=== PATIENT | female | born 1980 | race Caucasian/White ===

== ENCOUNTER 2019-01-29 01:57 | Emergency (ER) | payer OTHER ==
[~2019-01-29] VITALS: Ht 157.5 cm; Wt 64.3 kg
[2019-01-29] MEDS ORDERED: IBUPROFEN 600 MG TABLET ONE (02:28)
[2019-01-29] MEDS ORDERED: IBUPROFEN 200 MG TABLET PO ONE (02:30)
[2019-01-29 03:09] VITALS: BP 150/75
== END 2019-01-29 03:55 | disposition home or self-care (01) ==
LOC: ED 03:10
DX: S10.91XA Abrasion of unspecified part of neck, initial encounter (principal); F15.10 Other stimulant abuse, uncomplicated; F17.200 Nicotine dependence, unspecified, uncomplicated; X58.XXXA Exposure to other specified factors, initial encounter; Y93.89 Activity, other specified; Y92.89 Other specified places as the place of occurrence of the external cause; Y99.8 Other external cause status
CPT/HCPCS: 76536; 99284